=== PATIENT | male | born 1965 | race Caucasian/White ===

== ENCOUNTER → 2017-03-19 | Outpatient (REF) | payer OTHER | LOC: M LAB REF 09:00 | PROVIDERS: ATTEND Physician Assistant | DX: J02.9 Acute pharyngitis, unspecified (principal); R50.9 Fever, unspecified ==

== ENCOUNTER → 2021-05-04 | Outpatient (CLI) | payer OTHER ==
[~2021-05-04] MED LIST: PROHANCE 279.3MG/ML 15ML VIAL As Ordered ONE
--- NOTE | 2021-05-05 10:13 | REP ---
INDICATION: PROSTATE ELEVATED PSA. COMPARISON: None. TECHNIQUE: Using a phased array surface coil, small exgnx-bb-gvka imaging was acquired using T2 weighted scans in the axial, coronal, and sagittal imaging planes. Small spdgv-sl-amda diffusion-weighted sequences are acquired. Small ezkqz-gm-yvua axial T1 weighted scans are acquired dynamically before and after the intravenous administration of 15 mL of ProHance. Imaging is reviewed using the [employer] computer-aided detection system. FINDINGS: Prostate is enlarged, measuring 5.5 x 5.0 x 5.5 cm, total volume 75.84 cc. Heterogeneous nodular signal is seen throughout the central zone and transitional zone compatible with benign prostatic hypertrophy. There is no adenopathy or free fluid in the pelvis. No bone lesion is seen. Three regions of interest are identified in the prostate for MR ultrasound fusion guided biopsy. First in the midline base anterior stroma there is heterogeneous hypointense nodular signal on T2 and ADC imaging, with washout type 3 enhancement. This protrudes into the bladder lumen. It measures 1.9 x 1.5 x 1.0 cm, total volume 1.69 cc. Overall level of suspicion is 3/5, the presence of clinically significant cancer is equivocal. Next in the right transitional zone extending from the base to the apex there is ill-defined heterogeneous mixed signal which is predominantly low in signal on T2 and diffusion-weighted images. There are scattered areas of washout type enhancement, type 3. The area measures 3.3 x 2.0 x 3.5 cm for total volume of 14.07 cc. Overall level of suspicion is 3/5 with clinically significant cancer equivocal. Finally in the left apicoposterior transitional zone there is ill-defined low signal on T2 and diffusion-weighted imaging. There is type 1 enhancement in this region. The area measures 1.1 x 0.7 x 1.0 cm, total volume 0.43 cc. Overall level of suspicion is 2/5 with low suspicion for the presence of clinically significant cancer. IMPRESSION: Enlarged prostate with diffuse nodular signal as discussed in detail above. Three regions of interest are identified in the prostate for potential MR ultrasound fusion guided biopsy, as discussed in detail above. <Electronically signed by Anival Sanchez > 05/05/21 [id number]
== END ==
LOC: M RAD 16:28
PROVIDERS: ATTEND Specialist
DX: R97.20 Elevated prostate specific antigen [PSA] (principal)
CPT/HCPCS: 72197; A9576

== ENCOUNTER → 2022-05-14 | Outpatient (CLI) | payer OTHER ==
[~2022-05-14] MED LIST changes: +AMLO2.5T3; +LOSA100T45; +METF10004; -PROHANCE 279.3MG/ML 15ML VIAL As Ordered ONE
== END ==
LOC: M LABSMTC 09:25
PROVIDERS: ATTEND Anesthesiology
DX: Z01.812 Encounter for preprocedural laboratory examination (principal); Z20.822 Contact with and (suspected) exposure to COVID-19

== ENCOUNTER 2022-05-19 09:39 | Day surgery (SDC) | payer OTHER ==
[~2022-05-19] VITALS: Ht 165.1 cm; Wt 84.5 kg
[~2022-05-19 09:39] MED LIST changes: +NS 1,000 ML IV ONE
[2022-05-19] MEDS ORDERED: propofoL 200 MG/20 ML VIAL As Ordered ONE ×2 (10:45→11:00)
[2022-05-19] MEDS ORDERED: LIDOCAINE 2% 100MG/5ML SDV (FOR ANES.) As Ordered ONE (10:45)
[2022-05-19 11:45] VITALS: BP 127/76
== END 2022-05-19 11:52 | disposition home or self-care (01) ==
LOC: M OPP 09:39
PROVIDERS: ATTEND Internal Medicine Gastroenterology
DX: Z12.11 Encounter for screening for malignant neoplasm of colon (principal); Z80.0 Family history of malignant neoplasm of digestive organs; D12.6 Benign neoplasm of colon, unspecified; K57.30 Diverticulosis of large intestine without perforation or abscess without bleeding; K64.4 Residual hemorrhoidal skin tags; K64.8 Other hemorrhoids; Z79.84 Long term (current) use of oral hypoglycemic drugs; Z79.899 Other long term (current) drug therapy; I10 Essential (primary) hypertension; E11.9 Type 2 diabetes mellitus without complications

== ENCOUNTER → 2022-10-30 | Outpatient (CLI) | payer OTHER ==
[~2022-10-30] MED LIST changes: -NS 1,000 ML IV ONE; +PROHANCE 279.3MG/ML 15ML VIAL As Ordered ONE; +PROHANCE 279.3MG/ML 5ML VIAL As Ordered ONE
== END ==
LOC: M RAD 15:46
PROVIDERS: ATTEND Specialist
DX: R97.20 Elevated prostate specific antigen [PSA] (principal)
CPT/HCPCS: 72197; A9576